=== PATIENT | female | born 1960 | race Caucasian/White ===

== ENCOUNTER → 2016-08-31 | Outpatient (CLI) | payer BC ==
[~2016-08-31] MED LIST: AMBIEN 5MG TABLE5 MG PO; ATIVAN 0.50.5 MG/TAB PO; BUPROPION100 MG PO; CALCIUM CARB500 MG PO; CELEXA 20MG20 MG/TAB PO; CENTRUM SILVER1 TAB; CITRACAL + D CA1 TAB; COUMADIN4 MG PO; DITROPAN 5MG TAB5 MG PO; EXCEDRIN TENSIO1 TAB PO; EXCEDRIN1 TAB PO; FOLIC ACID 40400 MCG PO; FOSAMAX 10M10 MG/TAB PO; FOSAMAX 70MG TA70 MG PO; IRON325 M1 PO; MACRODANTIN50 MG/CA1 PO; MASON NATURAL1000 IU PO; MELATONIN5 M1 SL; METOPROLOL100 MG PO; NORCO 325 MG-7.1 TAB PO; OXYBUTYNIN5 MG PO; PEPCID 20MG TAB20 MG PO; PRESERVISION1 SGL PO; PREVACID24HROTC CHEW; TOPROL XL100 MG PO; TYLENOL 500MG500 MG PO; VITAMIND3 5000; WELLBUTRIN SR150 M1 PO; [UNRECOGNIZED DRUG - OTHER] PO
== END ==
LOC: MC.RAD 07:30
DX: D48.62 Neoplasm of uncertain behavior of left breast (principal)
CPT/HCPCS: 30635

== ENCOUNTER 2016-09-19 08:02 | Day surgery (SDC) | payer BC ==
[~2016-09-19] VITALS: Ht 160 cm; Wt 86.8 kg
[~2016-09-19 08:02] MED LIST changes: -AMBIEN 5MG TABLE5 MG PO; -ATIVAN 0.50.5 MG/TAB PO; -CALCIUM CARB500 MG PO; -CELEXA 20MG20 MG/TAB PO; -CENTRUM SILVER1 TAB; -CITRACAL + D CA1 TAB; -DITROPAN 5MG TAB5 MG PO; -EXCEDRIN TENSIO1 TAB PO; -EXCEDRIN1 TAB PO; -FOSAMAX 10M10 MG/TAB PO; -FOSAMAX 70MG TA70 MG PO; -MASON NATURAL1000 IU PO; -MELATONIN5 M1 SL; -NORCO 325 MG-7.1 TAB PO; -PEPCID 20MG TAB20 MG PO; -PRESERVISION1 SGL PO; -PREVACID24HROTC CHEW; -TOPROL XL100 MG PO; -TYLENOL 500MG500 MG PO; -VITAMIND3 5000; -WELLBUTRIN SR150 M1 PO
[2016-09-19] MEDS ORDERED: CELEXA 20MG20 MG/TAB PO (09:16)
[2016-09-19] MEDS ORDERED: MACRODANTIN50 MG/CA1 PO (09:16)
[2016-09-19] MEDS ORDERED: AMBIEN 5MG TABLE5 MG PO (09:17)
[2016-09-19] MEDS ORDERED: FOSAMAX 70MG TA70 MG PO (09:18)
[2016-09-19] MEDS ORDERED: ATIVAN 0.50.5 MG/TAB PO (09:19)
[2016-09-19] MEDS ORDERED: CENTRUM SILVER1 TAB (09:20)
[2016-09-19] MEDS ORDERED: VITAMIND3 5000 (09:21)
[2016-09-19] MEDS ORDERED: CITRACAL + D CA1 TAB (09:21)
[2016-09-19] MEDS ORDERED: PRESERVISION1 SGL PO (09:22)
[2016-09-19] MEDS ORDERED: PEPCID 20MG TAB20 MG PO (09:23)
[2016-09-19] MEDS ORDERED: TYLENOL 500MG500 MG PO (09:24)
[2016-09-19 09:33] VITALS: BP 139/73; PULSE 63; TEMP 98.8
[2016-09-19] MEDS ORDERED: MELATONIN5 M1 SL (09:38)
[2016-09-19] MEDS ORDERED: EXCEDRIN TENSIO1 TAB PO (09:42)
[2016-09-19 16:57] VITALS: BP 112/58; PULSE 69; TEMP 97.4
[2016-09-19] MEDS ORDERED: NORCO 325 MG-7.1 TAB PO (17:12)
[2016-09-19 17:15] VITALS: BP 118/83; PULSE 72
[2016-09-19 17:30] VITALS: BP 120/87; PULSE 72
== END 2016-09-19 18:11 | disposition home or self-care (01) ==
LOC: SDCO 08:02
DX: C50.412 Malignant neoplasm of upper-outer quadrant of left female breast (principal); Z78.0 Asymptomatic menopausal state
CPT/HCPCS: A9541; J0690; J1100; J1885; J2250; J2405; J2704; J2795; J3010; J7120; Q9968

== ENCOUNTER → 2016-10-12 | Outpatient (CLI) | payer BC ==
[~2016-10-12] MED LIST changes: +AMBIEN 5MG TABLE5 MG PO; +ATIVAN 0.50.5 MG/TAB PO; +CALCIUM CARB500 MG PO; +CELEXA 20MG20 MG/TAB PO; +CENTRUM SILVER1 TAB; +CITRACAL + D CA1 TAB; +DITROPAN 5MG TAB5 MG PO; +EXCEDRIN TENSIO1 TAB PO; +EXCEDRIN1 TAB PO; +FOSAMAX 10M10 MG/TAB PO; +FOSAMAX 70MG TA70 MG PO; +MASON NATURAL1000 IU PO; +MELATONIN5 M1 SL; +NORCO 325 MG-7.1 TAB PO; +PEPCID 20MG TAB20 MG PO; +PRESERVISION1 SGL PO; +PREVACID24HROTC CHEW; +TOPROL XL100 MG PO; +TYLENOL 500MG500 MG PO; +VITAMIND3 5000; +WELLBUTRIN SR150 M1 PO
== END ==
LOC: COL.VAS 12:26
DX: Z08 Encounter for follow-up examination after completed treatment for malignant neoplasm (principal); C50.412 Malignant neoplasm of upper-outer quadrant of left female breast

== ENCOUNTER 2016-10-16 11:33 | Day surgery (SDC) | payer BC ==
[~2016-10-16] VITALS: Ht 160 cm; Wt 85.9 kg
[~2016-10-16 11:33] MED LIST changes: -CALCIUM CARB500 MG PO; -DITROPAN 5MG TAB5 MG PO; -EXCEDRIN1 TAB PO; -FOSAMAX 10M10 MG/TAB PO; -MASON NATURAL1000 IU PO; -PREVACID24HROTC CHEW; -TOPROL XL100 MG PO; -WELLBUTRIN SR150 M1 PO
[2016-10-16 12:15] VITALS: BP 135/79; PULSE 61; TEMP 99.3
[2016-10-16] MEDS ORDERED: PEPCID 20MG TAB20 MG PO (12:25)
[2016-10-16] MEDS ORDERED: ATIVAN 0.50.5 MG/TAB PO (12:25)
[2016-10-16] MEDS ORDERED: TYLENOL 500MG500 MG PO (12:26)
[2016-10-16] MEDS ORDERED: TOPROL XL100 MG PO (12:27)
[2016-10-16] MEDS ORDERED: DITROPAN 5MG TAB5 MG PO (12:27)
[2016-10-16] MEDS ORDERED: FOSAMAX 10M10 MG/TAB PO (12:28)
[2016-10-16] MEDS ORDERED: AMBIEN 5MG TABLE5 MG PO (12:28)
[2016-10-16] MEDS ORDERED: MACRODANTIN50 MG/CA1 PO (12:28)
[2016-10-16] MEDS ORDERED: EXCEDRIN1 TAB PO (12:29)
[2016-10-16] MEDS ORDERED: CELEXA 20MG20 MG/TAB PO (12:29)
[2016-10-16] MEDS ORDERED: CALCIUM CARB500 MG PO (12:30)
[2016-10-16] MEDS ORDERED: MASON NATURAL1000 IU PO (12:30)
[2016-10-16] MEDS ORDERED: MELATONIN5 M1 SL (12:31)
[2016-10-16] MEDS ORDERED: WELLBUTRIN SR150 M1 PO (12:31)
[2016-10-16] MEDS ORDERED: PRESERVISION1 SGL PO (12:32)
[2016-10-16 14:25] VITALS: BP 144/93; PULSE 66; TEMP 97.6
[2016-10-16 14:30] VITALS: BP 150/84; PULSE 59
[2016-10-16 14:45] VITALS: BP 138/86; PULSE 59
== END 2016-10-16 15:10 | disposition home or self-care (01) ==
LOC: SDCO 11:33
DX: C50.912 Malignant neoplasm of unspecified site of left female breast (principal); M81.0 Age-related osteoporosis without current pathological fracture; Q05.9 Spina bifida, unspecified; Z89.512 Acquired absence of left leg below knee; K21.9 Gastro-esophageal reflux disease without esophagitis; N31.9 Neuromuscular dysfunction of bladder, unspecified; I47.1 Supraventricular tachycardia; M19.012 Primary osteoarthritis, left shoulder
CPT/HCPCS: C1788; J0690; J1644; J2704; J3010

== ENCOUNTER 2016-12-17 10:59 | Outpatient (RCR) | payer BC ==
[2016-12-17] VITALS (11 sets, daily range): BP systolic 106–124; BP diastolic 54–104; PULSE 63–78; TEMP 98.4–99.1
[~2016-12-17] VITALS: Ht 160 cm; Wt 80.9 kg
[~2016-12-17 10:59] MED LIST changes: +CALCIUM CARB500 MG PO; +DITROPAN 5MG TAB5 MG PO; +EXCEDRIN1 TAB PO; +FOSAMAX 10M10 MG/TAB PO; +MASON NATURAL1000 IU PO; +TOPROL XL100 MG PO; +WELLBUTRIN SR150 M1 PO
[2016-12-17] MEDS ORDERED: PREVACID24HROTC CHEW (12:04)
== END 2016-12-17 17:00 | disposition home or self-care (01) ==
LOC: COL.LAB 10:59 → EUO 10:59 → EDSTATUS 11:00 → EUO 11:00 → COL.LAB 11:00 → EUO 17:00
DX: C50.412 Malignant neoplasm of upper-outer quadrant of left female breast (principal); Z79.899 Other long term (current) drug therapy
CPT/HCPCS: J1644; J7050; P9016

== ENCOUNTER 2017-03-11 14:15 | Outpatient (RCR) | payer BC ==
[~2017-03-11 14:15] MED LIST changes: +PREVACID24HROTC CHEW
== END 2017-05-21 ==
LOC: MKS.ESL.PT
DX: I89.0 Lymphedema, not elsewhere classified (principal); Z85.3 Personal history of malignant neoplasm of breast

== ENCOUNTER → 2017-09-27 | Outpatient (CLI) | payer BC | LOC: MC.RAD 09-23 13:40 | DX: Z85.3 Personal history of malignant neoplasm of breast (principal); Z98.890 Other specified postprocedural states; Z92.3 Personal history of irradiation; Z17.1 Estrogen receptor negative status [ER-] ==

== ENCOUNTER → 2018-04-03 | Outpatient (CLI) | payer BC | LOC: MC.RAD 12:56 | DX: C50.412 Malignant neoplasm of upper-outer quadrant of left female breast (principal); I10 Essential (primary) hypertension; Z98.890 Other specified postprocedural states | CPT/HCPCS: G0279 ==

== ENCOUNTER 2018-12-22 16:15 | Outpatient (RCR) | payer BC | END 2018-12-23 07:58 | disposition home or self-care (01) | LOC: MKS.ESL.PT 16:15 | DX: M19.112 Post-traumatic osteoarthritis, left shoulder (principal) ==

== ENCOUNTER → 2019-04-06 | Outpatient (CLI) | payer BC | LOC: MC.RAD 09:30 | DX: Z12.31 Encounter for screening mammogram for malignant neoplasm of breast (principal); C50.412 Malignant neoplasm of upper-outer quadrant of left female breast; I10 Essential (primary) hypertension; Z92.3 Personal history of irradiation; Z98.890 Other specified postprocedural states ==

== ENCOUNTER → 2020-04-07 | Outpatient (CLI) | payer BC | LOC: MC.RAD 09:45 | DX: Z12.31 Encounter for screening mammogram for malignant neoplasm of breast (principal); Z85.3 Personal history of malignant neoplasm of breast ==

== ENCOUNTER → 2021-04-10 | Outpatient (CLI) | payer BC | LOC: MC.RAD 10:59 | DX: Z12.31 Encounter for screening mammogram for malignant neoplasm of breast (principal); C50.412 Malignant neoplasm of upper-outer quadrant of left female breast; Z98.82 Breast implant status ==

== ENCOUNTER → 2021-10-19 | Outpatient (CLI) | payer OTHER | LOC: COL.RAD 10:05 | DX: Z02.71 Encounter for disability determination (principal); M19.012 Primary osteoarthritis, left shoulder; M54.50 Low back pain, unspecified ==

== ENCOUNTER → 2023-07-01 | Outpatient (CLI) | payer BC | LOC: MC.RAD 13:27 | DX: Z12.31 Encounter for screening mammogram for malignant neoplasm of breast (principal); C50.412 Malignant neoplasm of upper-outer quadrant of left female breast ==

== ENCOUNTER 2024-04-09 08:25 | Outpatient (CLI) | payer MEDICARE, BC ==
[~2024-04-09] VITALS: Ht 160 cm; Wt 84.2 kg
[2024-04-09 09:42] VITALS: BP 127/75; PULSE 62; TEMP 98.2
--- NOTE | 2024-04-09 10:38 | NUR ---
Port flushed again and blood return verified. Flushed with 20 ml NS and heparin per protocol. Pt will continue with home infusions and lab draws with port. Pt very greatful to avoid PICC placement today, but is aware if there are future issues with port, she will likely need to return if PICC placement is ordered. She exits dept in care of . Free of complaints at discharge.
[2024-04-09] MEDS ORDERED: VESICARE10 MG PO (12:36)
[2024-04-09] MEDS ORDERED: GEMTESA75 MG PO (12:36)
[2024-04-09] MEDS ORDERED: AMOXICILLIN 25250 MG PO (12:37)
[2024-04-09] MEDS ORDERED: PREVACID 15MG15 M1 PO (12:39)
[2024-04-09] MEDS ORDERED: COZAAR 50MG50 MG/TAB PO (12:39)
[2024-04-09] MEDS ORDERED: LIPITOR20 MG PO (12:41)
[2024-04-09] MEDS ORDERED: CENTRUM SILVER1 TAB PO (12:42)
[2024-04-09] MEDS ORDERED: CALCIUM 600MG+D1 TAB PO (12:42)
[2024-04-09] MEDS ORDERED: VITAMIND3 5000 PO (12:42)
[2024-04-09] MEDS ORDERED: MELATONIN5 M1 PO (12:43)
[2024-04-09] MEDS ORDERED: TYLENOL 8 HR PO (12:43)
[2024-04-09] MEDS ORDERED: ZYRTEC 10MG10 MG PO (12:44)
[2024-04-09] MEDS ORDERED: BIOTIN10000 MC1 PO (12:44)
[2024-04-09] MEDS ORDERED: CALCIUM 600600 MG PO (12:44)
[2024-04-09] MEDS ORDERED: BENADRYL25 M2 PO (12:45)
[2024-04-09] MEDS ORDERED: CLEOCIN HCL300 MG PO (12:45)
[2024-04-09] MEDS ORDERED: FIORICET 325 MG1 TA1 PO (12:47)
== END 2024-04-09 10:38 | disposition home or self-care (01) ==
LOC: EUO 08:25
DX: Z98.890 Other specified postprocedural states (principal)

== ENCOUNTER → 2024-04-11 | Outpatient (CLI) | payer MEDICARE, BC ==
[~2024-04-11] MED LIST changes: +AMOXICILLIN 25250 MG PO; +BENADRYL25 M2 PO; +BIOTIN10000 MC1 PO; +CALCIUM 600600 MG PO; +CALCIUM 600MG+D1 TAB PO; +CENTRUM SILVER1 TAB PO; +CLEOCIN HCL300 MG PO; +COZAAR 50MG50 MG/TAB PO; +FIORICET 325 MG1 TA1 PO; +GEMTESA75 MG PO; +LIPITOR20 MG PO; +MELATONIN5 M1 PO; +PREVACID 15MG15 M1 PO; +TYLENOL 8 HR PO; +VESICARE10 MG PO; +VITAMIND3 5000 PO; +ZYRTEC 10MG10 MG PO
== END ==
LOC: COL.LAB 08:40
DX: T84.53XD Infection and inflammatory reaction due to internal right knee prosthesis, subsequent encounter (principal)

== ENCOUNTER → 2024-04-12 | Outpatient (CLI) | payer MEDICARE, BC | LOC: COL.LAB 09:40 | DX: T84.53XD Infection and inflammatory reaction due to internal right knee prosthesis, subsequent encounter (principal) ==